=== PATIENT | male | born 1975 | race Asian ===

== ENCOUNTER 2018-06-24 09:58 | Day surgery (SDC) | payer OTHER ==
[2018-06-24] MEDS ORDERED: FENTAnyl 50 MCG/ML VIAL (12:09)
[2018-06-24] MEDS ORDERED: MIDAZOLAM 1 MG/ML 2 ML INJ ×2 (12:09)
== END 2018-06-24 16:09 | disposition home or self-care (01) ==
LOC: GIL 09:58
DX: Z12.11 Encounter for screening for malignant neoplasm of colon (principal); D12.2 Benign neoplasm of ascending colon; D12.8 Benign neoplasm of rectum; E11.9 Type 2 diabetes mellitus without complications
CPT/HCPCS: 45380; 82962; 88305